=== PATIENT | male | born 1980 | race Caucasian/White ===

== ENCOUNTER 2017-07-01 05:51 | Day surgery (SDC) | payer MEDICAID ==
[2017-06-30 14:17] LABS: HEMATOCRIT 44.9 % (42.0-54.0); HEMOGLOBIN 15.4 g/dL (13.5-17.5); MCH 32.9 pg (26.0-34.0); MCHC 34.3 g/dL (31.0-37.0); MCV 95.9 fL (80.0-100.0); MEAN PLATELET VOLUME 9.1 fL (7.4-10.4); RBC 4.68 10x6/uL (4.20-6.10); RDW 12.8 % (11.5-14.5); WBC 8.1 10x3/uL (4.8-10.8)
[2017-06-30 14:50] LABS: CALC OSMOLALITY 270 mosm/kg (275-300); CALCIUM 9.3 mg/dL (8.5-10.1); CARBON DIOXIDE 29.8 mmol/L (21.0-32.0); CHLORIDE - SERUM 97 mmol/L (98-107); GLUCOSE 94 mg/dL (74-106); POTASSIUM - SERUM 4.2 mmol/L (3.5-5.1); SODIUM 135 mmol/L (136-145); UREA NITROGEN 15 mg/dL (7-18); eGFR NON AFRICAN AMERICAN 90 mL/min (90-120)
[~2017-07-01] VITALS: Ht 188 cm; Wt 123.4 kg
[~2017-07-01 05:51] MED LIST: HYDROCHLOROTHIA25 MG PO; LIBRIUM25 MG PO; PROPRANOLOL HCL80 MG PO; TEMAZEPAM30 MG PO; XANAX1 MG PO
[2017-07-01 06:31] VITALS: BP 131/89; Ht 188 cm; Wt 123.4 kg
[2017-07-01] MEDS ORDERED: HYDROCODON-ACE1 EAC7 PO (09:46)
--- NOTE | 2017-07-02 08:02 | OP ---
PATIENT NAME: HENNY KENDRICK MEDICAL RECORD: [id number] :80 LOCATION:[facility] ADMISSION DATE: SURGEON: STEPHANIE ALLISON MD DATE OF OPERATION: 07/01/2017 SURGEON: Stephanie Allison MD PREOPERATIVE DIAGNOSIS: Right inguinal hernia. POSTOPERATIVE DIAGNOSIS: Right inguinal hernia. PROCEDURE PERFORMED: Right inguinal herniorrhaphy with mesh. ANESTHESIA: General. COMPLICATIONS: None. SPECIMENS: Cord lipoma and hernia sac. ESTIMATED BLOOD LOSS: 20 cc. OPERATIVE COURSE: After consent was obtained, the patient was taken to the operating room and placed in the supine position on the operating table. Next, general anesthesia was given via endotracheal intubation. Thereafter, a timeout was taken to confirm the correct patient and procedure. The right inguinal region was prepped and draped in the typical sterile fashion and [place] dressing was placed. External landmarks were identified. The inguinal nerve block was performed 2 fingerbreadths medial and 1 fingerbreadth inferior to the ASIS. Pubic tubercle was identified. Local anesthetic was injected. A transverse skin incision was then made with a 15-blade scalpel. Dissection continued to the level of the external oblique fascia using electrocautery. Local anesthetic was injected just below the external oblique fascia. The external oblique fascia was incised with a 15- blade scalpel. The external oblique fascia was then opened using the Metzenbaum scissors laterally towards the ASIS, medially through the external inguinal ring. Flaps were created with blunt dissection. A Weitlaner retractor was placed. The cord and cord structures were dissected off the pubic tubercle. [place] dressing was placed. The hernia sac was identified anteromedially and dissected off dorsally as well as the cord lipoma. The lipoma and hernia sac were excised and sent for permanent pathology. A Clara hernia repair was then performed with the Bard 3DMax mesh. It was secured to the pubic tubercle medially, secured with interrupted 2-0 Prolene suture as well as along the inguinal ligament inferiorly, and to the conjoined tendon superiorly loosely recreating the internal ring. The external oblique fascia was then closed, loosely recreating the external ring. The mesh was secured to the conjoined tendon loosely recreating the internal ring. The external oblique fascia was then closed loosely recreating the external ring using 2-0 Vicryl suture. Shun's fascia was reapproximated using 3-0 Vicryl. The skin was closed using 4-0 Stratafix, Mastisol and Steri-Strips. At the end of the case, all needle and instrument counts were correct. No complications occurred. The patient was extubated and transferred to the PACU in stable condition. TRANSINT:[id number] Voice Confirmation ID: [id number] DOCUMENT ID: [id number] OPERATIVE REPORT [id number] HENNY KENDRICK JAMES J MD at 0802 CC: [id number] DICTATION DATE: 07/01/17 0953 COMPOSITE ENGINEER: 07/01/17 1252 [facility] 07/01/[address] [address]
== END 2017-07-01 12:05 | disposition home or self-care (01) ==
LOC: D.OPS 05:51 → D.PAN 08:00 → D.OPS 12:05
PROVIDERS: Anesthesiology
DX: K40.90 Unilateral inguinal hernia, without obstruction or gangrene, not specified as recurrent (principal); D17.6 Benign lipomatous neoplasm of spermatic cord; Z01.812 Encounter for preprocedural laboratory examination